=== PATIENT | female | born 1995 ===

== ENCOUNTER 2020-01-05 14:42 | Inpatient (IN) | payer OTHER ==
[~2020-01-05] VITALS: Ht 30.5 cm; Wt 5.0 kg
[~2020-01-05 14:42] MED LIST: DOLOGEN CAPLET1 EACH PO
[2020-01-07] MEDS ORDERED: INTEGRA PLUS C1 EACH PO (09:27)
== END 2020-01-11 09:20 | disposition home or self-care (01) | DRG 745 ==
LOC: ER 14:42 → OB/GYN 01-06 07:15
PROVIDERS: ADMIT Obstetrics & Gynecology; ATTEND Obstetrics & Gynecology
PROC: 30233N1 Transfusion of Nonautologous Red Blood Cells into Peripheral Vein, Percutaneous Approach (ICD-10-PCS; 2020-01-06)
PROC: 0UDB8ZZ Extraction of Endometrium, Via Natural or Artificial Opening Endoscopic (ICD-10-PCS; principal; 2020-01-10 12:30)
DX: N84.0 Polyp of corpus uteri (principal); N93.8 Other specified abnormal uterine and vaginal bleeding; D50.8 Other iron deficiency anemias